=== PATIENT | female | born 1970 | race Two or more races ===

== ENCOUNTER 2025-03-12 08:03 | Day surgery (SDC) | payer OTHER ==
[2025-03-04 08:58] LABS: BASO % 0.8 % (0.1-1.2); EOS # 0.11 (0.04-0.54); EOS % 2.8 % (0.7-7.0); HEMATOCRIT 38.2 % (34.1-44.9); HEMOGLOBIN 12.8 g/dL (11.2-15.7); LYMPH # 1.15 (1.18-3.74); LYMPH % 29.6 % (19.3-53.1); MEAN CORPUSCULAR HEMOGLOBIN 28.9 pg (25.6-32.2); MONO # 0.25 (0.24-0.82); MONO % 6.4 % (4.7-12.5); NEUT # 2.33 (1.56-6.13); NEUT % 60.1 % (34.0-71.1); PLATELET COUNT 206 K/uL (163-369); RED BLOOD COUNT 4.43 M/uL (3.93-5.22); RED CELL DISTRIBUTION WIDTH 13.2 % (11.6-14.4); URINE APPEARANCE Cloudy; URINE BILIRRUBIN Negative (NEGATIVE); URINE COLOR Yellow; URINE GLUCOSE Negative (NEGATIVE); URINE KETONE Negative (NEGATIVE); URINE LEUKOCYTE Trace; URINE NITRATE Negative; URINE PROTEIN Negative (NEGATIVE); URINE UROBILINOGEN 0.2 E.U./dl
[2025-03-04 09:00] LABS: URINE BACTERIA 4276.3 uL (0.0-1933); URINE EPITHELIAL CELLS 23.9 uL (0.0-38.8); URINE RBC 74.2 uL (0.0-20.8); URINE WBC 60.7 uL (0.0-23.2)
[2025-03-04 09:03] LABS: URINE BLOOD TRACES; URINE CAST 0.73 uL (0.0-1.40)
[2025-03-04 09:24] LABS: INR 1.02; PARTIAL THROMBOPLASTIN TIME 27.9 SECONDS (22.0-34.0); PROTHROMBIN TIME 11.1 SECONDS (9.0-11.5)
[2025-03-04 09:58] LABS: ALBUMIN 3.9 gm/dL (3.4-5.0); BILIRUBIN TOTAL 0.33 mg/dL (0.3-1.2); CALCIUM 8.8 mg/dL (8.5-10.1); CREATININE SERUM 0.7 mg/dL (0.55-1.02); GFR 87.87; GLOBULINA 3.3 G/DL (2.4-3.5); POTASSIUM 4.43 mEq/L (3.5-5.1); TOTAL PROTEIN 7.2 gm/dL (6.4-8.2)
[2025-03-12] MEDS ORDERED: CEFAZOLIN SODIUM 1,000 MG VIAL ONE (11:00)
[2025-03-12] MEDS ORDERED: CHLORHEXIDINE GLUCONATE 120 ML BOTTLE TOP ONE (12:07)
[2025-03-12] MEDS ORDERED: POVIDONE-IODINE 118 ML BOTT TOP ONE (12:07)
[2025-03-12] MEDS ORDERED: DOXYCYCLINE HY100 MG PO (13:36)
[2025-03-12] MEDS ORDERED: TRAM1TAB98 PO (13:36)
[2025-03-12] MEDS ORDERED: NAPROXEN500 MG PO (13:37)
[2025-03-12] MEDS ORDERED: MORPHINE SULFATE 4 MG/ML VIAL IV ONE (17:15)
== END 2025-03-12 19:50 | disposition home or self-care (01) ==
LOC: CIR.AMB 08:03
PROVIDERS: ATTEND Obstetrics & Gynecology
DX: D06.9 Carcinoma in situ of cervix, unspecified (principal); N92.1 Excessive and frequent menstruation with irregular cycle; N84.0 Polyp of corpus uteri; D25.0 Submucous leiomyoma of uterus

== ENCOUNTER 2025-03-16 17:06 | Emergency (ER) | payer OTHER ==
[~2025-03-16] VITALS: Ht 157.5 cm; Wt 52.6 kg
[~2025-03-16 17:06] MED LIST: DOXYCYCLINE HY100 MG PO; NAPROXEN500 MG PO; TRAM1TAB98 PO
[2025-03-16] MEDS ORDERED: FAMOtidine 10 MG/ML (4ML VIAL) IV ONE (19:45)
[2025-03-16] MEDS ORDERED: DIPHENHYDRAMINE HCL 50 MG/ML VIAL 1ML IV ONE (20:00)
[2025-03-16] MEDS ORDERED: DEXAMETHASONE SODIUM PHOSP/PF 10 MG/ML VIAL IV ONE (20:00)
[2025-03-16] MEDS ORDERED: FAMOTIDINE/PF 20 MG/2 ML VIAL ONE (20:18)
[2025-03-16] MEDS ORDERED: DEXAMETHASONE SODIUM PHOSPHATE 4 MG/ML VIAL ONE (20:18)
[2025-03-16] MEDS ORDERED: DIPHENHYDRAMINE HCL 50 MG/ML VIAL 1ML ONE (20:18)
[2025-03-16 21:09] LABS: BASO % 0.9 % (0.1-1.2); EOS % 1.9 % (0.7-7.0); HEMATOCRIT 36.8 % (34.1-44.9); HEMOGLOBIN 12.6 g/dL (11.2-15.7); LYMPH # 1.32 (1.18-3.74); MONO # 0.34 (0.24-0.82); MONO % 6.4 % (4.7-12.5); NEUT # 3.47 (1.56-6.13); NEUT % 65.6 % (34.0-71.1); PLATELET COUNT 219 K/uL (163-369); RED BLOOD COUNT 4.34 M/uL (3.93-5.22); RED CELL DISTRIBUTION WIDTH 13.2 % (11.6-14.4)
[2025-03-16 21:20] LABS: COVID-19 AG NEGATIVE (NEGATIVE)
[2025-03-16 21:32] LABS: INFLUENZA A AG NEGATIVE (NEGATIVE)
[2025-03-16 21:33] LABS: INFLUENZA B AG POSITIVE (NEGATIVE)
[2025-03-16] MEDS ORDERED: NEOMYCIN/POLYMYXIN B/HYDROCORT 20 DR/ML BOTTLE OT ONE ×2 (22:59→23:00)
[2025-03-16] MEDS ORDERED: PEPCID AC20 MG PO (23:34)
[2025-03-16] MEDS ORDERED: OSEL75CA PO (23:34)
[2025-03-16] MEDS ORDERED: BUTALB-ACETAMI1 EAC2 PO (23:34)
== END 2025-03-16 23:56 | disposition home or self-care (01) ==
LOC: ER 17:06
PROVIDERS: General Practice
DX: J10.1 Influenza due to other identified influenza virus with other respiratory manifestations (principal); G43.809 Other migraine, not intractable, without status migrainosus; G97.1 Other reaction to spinal and lumbar puncture; Z20.822 Contact with and (suspected) exposure to COVID-19